=== PATIENT | male | born 1990 | race Caucasian/White ===

== ENCOUNTER 2021-08-22 08:49 | Emergency (ER) | payer BC, SELFPAY ==
[2021-08-22 09:10] VITALS: BP 131/76; PULSE 81; RESP 18; TEMP 37; O2SAT 97; BMI 26.4
--- NOTE | 2021-08-22 09:45 | ED.PSYCH ---
HPI - Psych General Time Seen by Provider: 09:45 Date Seen: 08/22/21 Chief Complaint: Psychiatric Problem/Disorder Stated Complaint: Mental health Time Seen by Provider: 08/22/21 09:37 History of Present Illness HPI Narrative: This 31-year-old male comes in because of some suicidal thoughts and plans. He was seen last evening at [place] [id number] and evaluated for having some thoughts that were on pleasant but at that time denying any plan or intent for suicide. He has a history of methamphetamine abuse and was incarcerated for 10 years. He is currently out on probation and relapsed using methamphetamine recently. He completed treatment at [facility] about 1 month ago. He does not want to go back to retirement and states that he has a girlfriend and an 8-month-old daughter. He does report depression, anxiety, and PTSD. He states that he had thoughts of driving his vehicle into the ditch to end his life today. He denies having any visual or auditory hallucinations. He feels that he needs to be kept safe in a facility for a day or so. I asked him if he might benefit from detox and he states that he does not think that he needs detoxification. Related Data Home Medications Medication Instructions Recorded Confirmed clonidine HCl 0.1 mg tablet 0.3 mg PO HS 08/22/21 08/22/21 Allergies Allergy/AdvReac Type Severity Reaction Status Date / Time No Known Drug Allergies Allergy Verified 08/22/21 09:14 Review of Systems Status of ROS: Reports: 10 or more systems reviewed and unremarkable except as noted in History and below Narrative: Constitutional: No fevers, no weight gain or loss. Eyes: No discharge. No vision changes. HENT: No congestion, no sore throat, no ear pain. Cardiovascular: No chest pain, no palpitations. Respiratory: No shortness of breath, no wheezes, no cough. Gastrointestinal: No abdominal pain, no vomiting, no diarrhea. Genitourinary: No dysuria, no hematuria. Musculoskeletal: Normal range of motion. Skin: No rashes, no pruritis. Neurological: No dizziness, weakness, sensory change, speech change. Endo/Heme/Allergies: No bruising or bleeding. No polydipsia. Pysch: Anxiety and depression. Recent relapse with methamphetamines. Suicidal thoughts and a plan as described above. All other systems reviewed and are negative. [facility] Social History Smoking Status: Current every day smoker What tobacco products do you use: cigarettes Do you use any of these nicotine containing products: None Second hand tobacco smoke exposure: No How often do you have a drink containing alcohol: never AUDIT-C Alcohol total score: 0 Non-prescribed substance use: denies use service: No Exam Narrative: Exam Narrative: Constitutional: Well-developed, well-nourished, no acute distress. HEENT: Normocephalic, atraumatic. Neck: Normal range of motion. Nontender. Supple. Heart: Intact distal pulses. Lungs: No chest discomfort. No wheezes, rhonchi, or rales. Abdomen: Nontender. Back: Normal range of motion. Extremities: Normal range of motion. No injury. Skin: Intact. No rash. Warm. No erythema or pallor. Neurologic: No altered sensation. No weakness. Alert and oriented. Psychiatric: Cooperative. Pleasant. Good eye contact. He reports feeling unsafe From himself. Nursing notes and vitals signs are reviewed. Const: Vital Signs, click to edit/add: Vital Signs - 24 hr 08/22/21 09:10 Temperature 98.6 F Pulse Rate [Pulse Oximeter] 81 Respiratory Rate 18 Blood Pressure [Ri ght Upper Arm] 131/76 Pulse Oximetry 97 Course Vital Signs Vital signs: Initial Vital Signs Temperature 98.6 F 08/22/21 09:10 Temperature Source Temporal Artery Scan 08/22/21 09:10 Pulse Rate 81 08/22/21 09:10 Pulse Rhythm 08/22/21 09:10 Respiratory Rate 18 08/22/21 09:10 Blood Pressure 131/76 08/22/21 09:10 Blood Pressure Mean 94 08/22/21 09:10 Blood Pressure Position Sitting 08/22/21 09:10 Pulse Oximetry 97 08/22/21 09:10 Oxygen Delivery Method 08/22/21 09:10 Vital Signs Temperature 98.6 F 08/22/21 09:10 Pulse Rate 81 08/22/21 09:10 Respiratory Rate 18 08/22/21 09:10 Blood Pressure 131/76 08/22/21 09:10 Pulse Oximetry 97 08/22/21 09:10 Temperature 98.6 F 08/22/21 09:10 Pulse Rate 81 08/22/21 09:10 Respiratory Rate 18 08/22/21 09:10 Blood Pressure 131/76 08/22/21 09:10 Pulse Oximetry 97 08/22/21 09:10 MDM - Psych MDM Narrative Medical decision making narrative: This patient comes in for psychiatric evaluation. He does admit to some suicidal thoughts and a specific plan. A tele health mental assessment was ordered and completed. There was discussion about inpatient placement which the patient declined and stated that he can go back to his aunt's place where he is staying and reaffirms safety. A safety plan is put in place. Additionally he has a therapist that he currently sees and also received an appointment for a new psychiatrist which will happen next week. The tele health marine machinist also spoke with the patient's onto feels good about this plan. Discharge Plan Discharge Clinical Impression: Depression Patient Disposition: Home, Self-Care Condition: Stable Instructions: Depression (ED) Additional Instructions: Encounter for psychiatric evaluation. Depression and anxiety. Take medication as prescribed. Follow up with therapist and psychiatrist as scheduled. Return if worsening symptoms happen. Prescriptions: No Action clonidine HCl 0.1 mg tablet 0.3 mg PO HS 0RF Follow Up/Referrals: Provider,Not a Local [Primary Care Provider] - Stand Alone Forms: [employer] Info Instructions
--- NOTE | 2021-08-22 12:02 | ED.NURSE ---
Discharge teaching completed. Patient reviewed and agreed to DEC safety plan, has signed in agreement. Patient drove self here, leaves ambulatory, steadily. He has a therapy appointment scheduled, GUILLAUME to call patient and check in in a few days.
== END 2021-08-22 12:01 | disposition home or self-care (01) ==
PROVIDERS: Emergency Provider Emergency Medicine Emergency Medical Services
DX: F32.A Depression, unspecified (principal)
CPT/HCPCS: 99283; 99284; 99285